=== PATIENT | female | born 1965 | race Native Hawaiian/Other Pacific Islander ===

== ENCOUNTER 2016-09-17 21:47 | Emergency (ER) | payer MEDICAID ==
[2016-09-17 21:52] VITALS: BMI 25.5
[2016-09-17 21:54] VITALS: RESP 16
[2016-09-17] MEDS ORDERED: Sodium Chloride 0.9% 1,000 ML IV STA (22:19)
--- NOTE | 2016-09-17 22:24 | ED PDOC ---
Arrival/HPI - General Chief Complaint: Flu-like Symptoms Time Seen by Provider: 09/17/16 22:00 Historian: Patient, Family - History of Present Illness Narrative History of Present Illness (Text): 09/17/16 22:21 51 y/o female, no significant pmh, nkda, pmd Loraine Reza, c/o feeling feeling hot and cold for the past 1 month along with occasional headache. Pt. has not been traveling outside of the [facility] for the past 3 months. Pt. stated she will be feeling hot and cold sensation, sometime difficulty sleeping and feeling sleepy during the day. Pt. stated that the energy level has not been the same, no throat pain, no abdominal or pelvic pain, no night sweat, no coughing or hemoptysis, no chest pain or shortness of breath, no neck stiffness, no rash, last period ending in the end of 07/2016. Past Medical History - Provider Review Nursing Documentation Reviewed: Yes - Tetanus Immunization Tetanus Immunization: Unknown - Cardiac Hx Cardiac Disorders: No - Pulmonary Hx Respiratory Disorders: No - Neurological Hx Neurological Disorder: No - HEENT Hx HEENT Disorder: No - Renal Hx Renal Disorder: No - Endocrine/Metabolic Hx Endocrine Disorders: No - Hematological/Oncological Hx Blood Disorders: No - Integumentary Hx Dermatological Disorder: No - Musculoskeletal/Rheumatological Hx Musculoskeletal Disorders: No - Gastrointestinal Hx Gastrointestinal Disorders: Yes Hx Gastritis: Yes - Genitourinary/Gynecological Hx Genitourinary Disorders: No - Psychiatric Hx Psychophysiologic Disorder: No Hx Substance Use: No - Surgical History Other/Comment: left breast lumpectomy - Anesthesia Hx Anesthesia Reactions: No Hx Malignant Hyperthermia: No - Suicidal Assessment Feels Threatened In Home Enviroment: No Family/Social History - Physician Review Nursing Documentation Reviewed: Yes Family/Social History: Unknown Family HX Smoking Status: Never Smoked Hx Alcohol Use: No Hx Substance Use: No Hx Substance Use Treatment: No Allergies/Home Meds Allergies/Adverse Reactions: Allergies No Known Allergies Allergy (Verified 01/02/15 18:30) Home Medications: Home Meds Medication Instructions Recorded Confirmed No Known Home Med 09/17/16 09/17/16 Review of Systems - Review of Systems Constitutional: Fatigue. absent: Fevers Eyes: absent: Vision Changes ENT: absent: Hearing Changes, Sore Throat, Rhinorrhea Respiratory: absent: SOB, Cough, Sputum Cardiovascular: absent: Chest Pain, Palpitations, Orthopnea, Syncope Gastrointestinal: absent: Abdominal Pain, Diarrhea, Nausea, Vomiting Musculoskeletal: absent: Arthralgias, Back Pain, Neck Pain, Joint Swelling, Myalgias Skin: absent: Rash, Pruritis, Skin Lesions, Laceration, Abscess, Ulcer, Cellulitis Neurological: absent: Headache, Dizziness, Focal Weakness, Gait Changes, Speech Changes, Facial Droop, Disequilibrium, Seizure Hemo/Lymphatic: absent: Adenopathy, Easy Bleeding, Easy Bruising Psychiatric: absent: Anxiety, Depression, Suicidal Ideation Physical Exam Vital Signs Reviewed: Yes Vital Signs Temp Pulse Resp BP Pulse Ox 09/18/16 00:13 97.6 F 73 16 105/65 98 09/17/16 21:52 97.5 F L 64 16 135/83 100 Temperature: Afebrile Blood Pressure: Normal Pulse: Regular Respiratory Rate: Normal Appearance: Positive for: Well-Appearing, Non-Toxic, Comfortable Pain Distress: Moderate Mental Status: Positive for: Alert and Oriented X 3 - Systems Exam Head: Present: Atraumatic, Normocephalic Pupils: Present: PERRL Extroacular Muscles: Present: EOMI Conjunctiva: Present: Normal Ears: Present: NORMAL TM, Normal Canal. No: Erythema Mouth: Present: Moist Mucous Membranes Pharnyx: No: ERYTHEMA, EXUDATE, TONSILS ENLARGED, Uvular Deviation, Muffled/ Hoarse Voice, Soft Palate/Uvular Edema Nose (External): Present: Atraumatic. No: Abrasion, Contusion Nose (Internal): Present: Normal Inspection, No Active Bleeding. No: Rhinorrhea , Septal Hematoma, Epistaxis Neck: Present: Normal Range of Motion, Trachea Midline. No: MIDLINE TENDERNESS , Paraspinal Tenderness, Lymphadenopathy Respiratory/Chest: Present: Clear to Auscultation, Good Air Exchange. No: Respiratory Distress, Accessory Muscle Use Cardiovascular: Present: Regular Rate and Rhythm, Normal S1, S2. No: Murmurs Abdomen: Present: Normal Bowel Sounds. No: Tenderness, Distention, Peritoneal Signs, Rebound, Guarding Back: Present: Normal Inspection Upper Extremity: Present: Normal Inspection. No: Cyanosis, Edema Lower Extremity: Present: Normal Inspection. No: Edema Neurological: Present: GCS=15, CN II-XII Intact, Speech Normal, Motor Func Grossly Intact, Gait Normal, Memory Normal Skin: Present: Warm, Dry, Normal Color. No: Rashes Lymphatic: No: Cervical Adenopathy Psychiatric: Present: Alert, Oriented x 3, Normal Insight, Normal Concentration Medical Decision Making ED Course and Treatment: 09/17/16 22:28 Post menopausal vs. Thyroid disorder vs. Brain mass vs. TB vs. Viral syndrome vs. UTI vs. Influenza -labs/thyroid/rapid flu/ua -IVF/toradol/reglan -CT head/chest x-ray -Observe and reassess 09/17/16 23:48 -CT Head show no acute findings -Chest x-ray show no active disease -UA show no UTI -Labs are non-significant except mildly elevated TSH 4.72 with normal T4, no emergent treatment indicated as the T4 is normal. I advised the patient to have outpatient repeat thyroid panel and thyroid sonogram with the pmd and endrocrinologist. 09/18/16 00:33 -I explained to the symptoms she experienced is likely menopausal symptoms which clinically match the history of present illness with the lab works. -I advised her to see the pmd for follow up. -Discharge home with education on take tylenol or motrin at home as needed, follow up with Dr. Loraine Reza for repeat thyroid panel and outpatient thyroid sonogram with possible heart surgeon and obgyn referral within 2 days, return to the ER for any new or worsening signs or symptoms. - Lab Interpretations Lab Results: 09/17/16 22:35 09/17/16 23:26 Lab Results 09/17/16 23:26: Sodium 138, Potassium 3.6, Chloride 105, Carbon Dioxide 26, Anion Gap 11, BUN 18, Creatinine 0.7, Est GFR ( Amer) > 60, Est GFR (Non- Af Amer) > 60, Random Glucose 113 H, Calcium 8.6, Total Bilirubin 0.4, AST 35, ALT 39, Alkaline Phosphatase 100, Total Protein 7.1, Albumin 3.9, Globulin 3.3, Albumin/Globulin Ratio 1.2 09/17/16 22:35: WBC 6.0 D, RBC 3.97, Hgb 13.3, Hct 37.9, MCV 95.5, MCH 33.5, MCHC 35.1, RDW 12.1, Plt Count 277, MPV 10.1, Gran % 48.0 L, Lymph % (Auto) 42.4 H, Boyd % (Auto) 7.4 H, Eos % (Auto) 1.7, Baso % (Auto) 0.5, Gran # 2.87, Lymph # 2.5, Boyd # 0.4, Eos # 0.1, Baso # 0.03, Free T4 0.79, TSH 3rd Generation 4.72 H, Urine Color Yellow, Urine Appearance Clear, Urine pH 6.0, Ur Specific [place] 1.020, Urine Protein Negative, Urine Glucose (UA) Negative, Urine Ketones Negative, Urine Blood Trace-lysed H, Urine Nitrate Negative, Urine Bilirubin Negative, Urine Urobilinogen 0.2, Ur Leukocyte Esterase Negative , Urine RBC 0 - 2, Urine WBC 1 - 3, Ur Epithelial Cells 1 - 3, Urine Bacteria Small, Influenza Typ A,B (EIA) Negative for flu a/b I have reviewed the lab results: Yes Interpretation: Abnormal lab values (mildly elevated TSH 4.72) - RAD Interpretation Radiology Orders: 09/17/16 22:19 HEAD W/O CONTRAST [CT] Stat CHEST PORTABLE [RAD] Stat CT Head: COMPARISON: No relevant prior studies available. FINDINGS: Brain: There is no evidence of intracranial hemorrhage. No evidence of acute territorial infarction. No significant white matter disease. No edema. Ventricles: Unremarkable. No ventriculomegaly. Bones/joints: Mild motion and beam hardening artifact near the skull base. No acute fracture. Soft tissues: Unremarkable. Sinuses: Unremarkable as visualized. No acute sinusitis. Mastoid air cells: Unremarkable as visualized. No mastoid effusion. IMPRESSION: 1. No evidence for acute intracranial abnormality or displaced calvarial fracture. 2. Additional incidental and/or chronic findings as described. 3. Artifact slightly limits evaluation. Thank you for allowing us to participate in the care of your patient. Dictated and Authenticated by: Kuldeep Trejo MD 09/17/2016 11:19 PM Eastern Time ([place] & [place]) Chest x-ray: Crusher Setter: Radiologist - Medication Orders Current Medication Orders: Discontinued Medications Sodium Chloride (Sodium Chloride 0.9%) 1,000 mls @ 999 mls/hr IV .Q1H1M STA Stop: 09/17/16 23:19 Last Admin: 09/17/16 22:49 Dose: 999 MLS/HR eMAR Start Stop Document 09/17/16 22:49 [email or web address] (Rec: 09/17/16 22:49 [id number]) Intravenous Solution Start Date 09/17/16 Start Time 22:49 End Date 09/17/16 Ketorolac Tromethamine (Toradol) 30 mg IVP STAT STA Stop: 09/17/16 22:20 Last Admin: 09/17/16 22:50 Dose: Not Given Non-Admin Reason: Patient Refused IVP Administration Document 09/17/16 22:50 [email or web address] (Rec: 09/17/16 22:[id number]- [id number]) Charges for Administration # of IVP Administrations 1 Metoclopramide HCl (Reglan) 10 mg IVP STAT STA Stop: 09/17/16 22:22 Last Admin: 09/17/16 22:50 Dose: Not Given Non-Admin Reason: Patient Refused IVP Administration Document 09/17/16 22:50 [email or web address] (Rec: 09/17/16 22:[id number]- [id number]) Charges for Administration # of IVP Administrations 1 - PA / ONCOLOGY PHYSICIAN ASSISTANT / Resident Statement MD/DO has reviewed & agrees with the documentation as recorded. Disposition/Present on Arrival - Present on Arrival Any Indicators Present on Arrival: No History of DVT/PE: No History of Uncontrolled Diabetes: No Urinary Catheter: No History of Decub. Ulcer: No History Surgical Site Infection Following: None - Disposition Have Diagnosis and Disposition been Completed?: Yes Diagnosis: Menopausal symptoms, Abnormal thyroid stimulating hormone (TSH) level Disposition: HOME/ ROUTINE Disposition Time: 23:49 Patient Plan: Discharge Condition: GOOD Additional Instructions: Discharge home with education on take tylenol or motrin at home as needed, follow up with Dr. Loraine Reza for repeat thyroid panel and outpatient thyroid sonogram with possible heart surgeon and obgyn referral within 2 days, return to the ER for any new or worsening signs or symptoms. Referrals: Loraine Reza MD [Primary Care Provider] - Follow up with primary Jorge Brand MD [Staff Provider] - Follow up with primary Forms: WORK NOTE
[2016-09-17 23:07] LABS: ADD MANUAL DIFF? NO
[2016-09-17 23:15] LABS: BASO # 0.03 K/mm3 (0.0-2.0); BASO % 0.5 % (0.0-3.0); EOS # 0.1 (0.0-0.7); EOS % 1.7 % (1.5-5.0); GRAN # 2.87 (1.4-6.5); HEMATOCRIT 37.9 % (36.0-48.0); LYMPH # 2.5 (1.2-3.4); LYMPH % 42.4 % (22.0-35.0); MEAN CELL VOLUME 95.5 fL (80.0-105.0); MEAN CORPUSCULAR HEMOGLOBIN 33.5 pg (25.0-35.0); MEAN CORPUSCULAR HGB CONC 35.1 g/dl (31.0-37.0); MEAN PLATELET VOLUME 10.1 fl (7.0-11.0); MONO # 0.4 (0.1-0.6); MONO % 7.4 % (1.0-6.0); PLATELET COUNT 277 10^3/uL (120.0-450.0); RED CELL DISTRIBUTION WIDTH 12.1 % (11.5-14.5); URINE BILIRUBIN NEGATIVE (NEGATIVE); URINE BLOOD TRACE-LYSED (NEGATIVE); URINE GLUCOSE (UA) NEGATIVE (NEGATIVE); URINE KETONE NEGATIVE (NEGATIVE); URINE LEUKOCYTE ESTERASE NEGATIVE Leu/uL (NEGATIVE); URINE PROTEIN NEGATIVE mg/dL (<30 mg/dL); URINE UROBILINOGEN 0.2 E.U./dL (<1 E.U./dL)
[2016-09-17 23:17] LABS: URINE APPEARANCE CLEAR (CLEAR); URINE COLOR YELLOW (YELLOW)
--- NOTE | 2016-09-17 23:20 | CT ---
EXAM: CT Head Without Intravenous Contrast. CLINICAL HISTORY: 51 years old, female; Pain; Headache; Migraine; Patient HX: Headache x 1 month TECHNIQUE: Axial computed tomography images of the head/brain without intravenous contrast. This CT exam was performed using one or more of the following dose reduction techniques: automated exposure control, adjustment of the mA and/or kV according to patient size, and/or use of iterative reconstruction technique. COMPARISON: No relevant prior studies available. FINDINGS: Brain: There is no evidence of intracranial hemorrhage. No evidence of acute territorial infarction. No significant white matter disease. No edema. Ventricles: Unremarkable. No ventriculomegaly. Bones/joints: Mild motion and beam hardening artifact near the skull base. No acute fracture. Soft tissues: Unremarkable. Sinuses: Unremarkable as visualized. No acute sinusitis. Mastoid air cells: Unremarkable as visualized. No mastoid effusion. IMPRESSION: 1. No evidence for acute intracranial abnormality or displaced calvarial fracture. 2. Additional incidental and/or chronic findings as described. 3. Artifact slightly limits evaluation.
[2016-09-17 23:31] LABS: URINE BACTERIA SMALL (NEG); URINE RBC 0 - 2 /hpf (0-2)
[2016-09-17 23:44] LABS: FREE T4 0.79 ng/dL (0.78-2.19)
[2016-09-17 23:45] LABS: ALB/GLOB RATIO 1.2 (1.1-1.8); ALKALINE PHOSPHATASE 100 U/L (38-133); ALT/SGPT 39 U/L (7-56); AST/SGOT 35 U/L (15-39); BILIRUBIN,TOTAL 0.4 mg/dL (0.2-1.3); BLOOD UREA NITROGEN 18 mg/dL (7-21); CALCIUM 8.6 mg/dL (8.4-10.5); CARBON DIOXIDE 26 mmol/L (21-33); CHLORIDE 105 mmol/L (98-107); GFR AFRICAN-AMERICAN > 60; GLUCOSE,RANDOM 113 mg/dL (70-110); POTASSIUM 3.6 mmol/L (3.6-5.0); SODIUM 138 mmol/L (132-148); TOTAL PROTEIN 7.1 g/dL (5.8-8.3)
[2016-09-17 23:58] LABS: THYROID STIMULATING HORMONE 4.72 mIU/mL (0.46-4.68)
[2016-09-18 00:13] VITALS: BP 105/65; PULSE 73; TEMP 97.6; O2SAT 98
--- NOTE | 2016-09-18 08:36 | RAD ---
HISTORY: medical clearance COMPARISON: None available. TECHNIQUE: Chest, one view. FINDINGS: Examination limited by habitus. LUNGS: No focal consolidation. Please note that chest x-ray has limited sensitivity for the detection of pulmonary masses. PLEURA: No significant pleural effusion identified. No definite pneumothorax . CARDIOVASCULAR: The cardiomediastinal silhouette appears within normal limits of size. OSSEOUS STRUCTURES: No acute osseous abnormality identified. VISUALIZED UPPER ABDOMEN: Unremarkable. OTHER FINDINGS: None. IMPRESSION: No focal consolidation, significant pleural effusion, or definite pneumothorax identified.
== END 2016-09-18 00:51 | disposition home or self-care (01) ==
LOC: ED 21:47
DX: N95.1 Menopausal and female climacteric states (principal); R79.89 Other specified abnormal findings of blood chemistry
CPT/HCPCS: 70450; 71010; 80053; 81001; 84439; 84443; 85025; 87804; 99284; J7040

== ENCOUNTER 2017-02-09 16:02 | Emergency (ER) | payer MEDICAID ==
[2017-02-09 16:02] VITALS: BMI 25.5
[2017-02-09 16:06] VITALS: RESP 16; O2SAT 98
[2017-02-09 16:47] VITALS: BP 98/65; PULSE 70; TEMP 97.9
--- NOTE | 2017-02-09 16:59 | ED PDOC ---
Arrival/HPI - General Chief Complaint: ENT Problem Time Seen by Provider: 02/09/17 16:34 Historian: Patient, Field Cane Scale Clerk (Son) - History of Present Illness Narrative History of Present Illness (Text): 02/09/17 16:45 A 51 year old female whose past medical history includes thyroid nodules, was brought in by her son who translated with a complaint of left sided neck pain. The osn states that the patient believed that the pain is associated with the thyroid nodules. She is scheduled with an behavioral therapist next week for evaluation. specifically when asked where the pain is, she points to lateral neck. The patient denies headache, fevers, chills, nausea, vomiting, diarrhea, aphasia, cough, chest pain, abdominal pain, or any other complaint. no sob, dysphagia. 02/10/17 22:30 02/10/17 22:30 Time/Duration: Other (Today) Symptom Onset: Sudden Symptom Course: Unchanged Activities at Onset: Rest, Light Context: Home Past Medical History - Provider Review Nursing Documentation Reviewed: Yes - Tetanus Immunization Tetanus Immunization: Unknown - Cardiac Hx Cardiac Disorders: No - Pulmonary Hx Respiratory Disorders: No - Neurological Hx Neurological Disorder: No - HEENT Hx HEENT Disorder: No - Renal Hx Renal Disorder: Yes Hx Kidney Stones: Yes - Endocrine/Metabolic Hx Endocrine Disorders: No - Hematological/Oncological Hx Blood Disorders: No - Integumentary Hx Dermatological Disorder: No - Musculoskeletal/Rheumatological Hx Musculoskeletal Disorders: No - Gastrointestinal Hx Gastrointestinal Disorders: Yes Hx Gastritis: Yes - Genitourinary/Gynecological Hx Genitourinary Disorders: No Other/Comment: uterine fibroids - Psychiatric Hx Psychophysiologic Disorder: No Hx Substance Use: No - Surgical History Other/Comment: left breast lumpectomy - Anesthesia Hx Anesthesia Reactions: No Hx Malignant Hyperthermia: No - Suicidal Assessment Feels Threatened In Home Enviroment: No Family/Social History - Physician Review Nursing Documentation Reviewed: Yes Family/Social History: No Known Family HX Smoking Status: Never Smoked Hx Alcohol Use: No Hx Substance Use: No Hx Substance Use Treatment: No Allergies/Home Meds Allergies/Adverse Reactions: Allergies No Known Allergies Allergy (Verified 01/02/15 18:30) Home Medications: Home Meds Medication Instructions Recorded Confirmed No Known Home Med 09/17/16 02/09/17 Review of Systems - Physician Review All systems were reviewed & negative as marked: Yes - Review of Systems Constitutional: absent: Fevers, Night Sweats ENT: Other (Left sided neck pain) Respiratory: absent: SOB, Cough Cardiovascular: absent: Chest Pain, Syncope Gastrointestinal: absent: Diarrhea, Nausea, Vomiting Neurological: absent: Headache, Dizziness Physical Exam Vital Signs Reviewed: Yes Vital Signs Temp Pulse Resp BP Pulse Ox 02/09/17 16:21 97.9 F 70 16 98/65 L 98 Temperature: Afebrile Blood Pressure: Hypertensive Pulse: Regular Respiratory Rate: Normal Appearance: Positive for: Well-Appearing, Non-Toxic, Comfortable Pain Distress: None Mental Status: Positive for: Alert and Oriented X 3 - Systems Exam Head: Present: Atraumatic, Normocephalic Pupils: Present: PERRL Extroacular Muscles: Present: EOMI Conjunctiva: Present: Normal Mouth: Present: Moist Mucous Membranes Neck: Present: Normal Range of Motion Respiratory/Chest: Present: Clear to Auscultation, Good Air Exchange. No: Respiratory Distress, Accessory Muscle Use Cardiovascular: Present: Regular Rate and Rhythm, Normal S1, S2. No: Murmurs Abdomen: Present: Normal Bowel Sounds. No: Tenderness, Distention, Peritoneal Signs Back: Present: Normal Inspection Upper Extremity: Present: Normal Inspection. No: Cyanosis, Edema Lower Extremity: Present: Normal Inspection. No: Edema Neurological: Present: GCS=15, CN II-XII Intact, Speech Normal, Other (Speaking full sentences) Skin: Present: Warm, Dry, Normal Color. No: Rashes Psychiatric: Present: Alert, Oriented x 3, Normal Insight, Normal Concentration Medical Decision Making ED Course and Treatment: 02/09/17 16:51 Impression: A 51 year old female with left sided neck pain. pt attributes pain to thyroid nodules diagnosed via us 2 weeks ago. (pt with us images on phone) Differential Diagnosis included but are not limited to: Plan: -- Reassess and disposition Progress Notes: 02/09/17 18:23 pt speaking full sentences. not tachcardic, bradycardic, no clinical concern for myedema vs thyroid storm speaking full sentences, no dysphagia. no palpable goiter or nodule. pt advises she will need continued outpt managment. 02/10/17 14:57 - Scribe Statement The provider has reviewed the documentation as recorded by the Scribe Misa Viramontes Provider Scribe Attestation: All medical record entries made by the Scribe were at my direction and personally dictated by me. I have reviewed the chart and agree that the record accurately reflects my personal performance of the history, physical exam, medical decision making, and the department course for this patient. I have also personally directed, reviewed, and agree with the discharge instructions and disposition. Disposition/Present on Arrival - Present on Arrival Any Indicators Present on Arrival: No History of DVT/PE: No History of Uncontrolled Diabetes: No Urinary Catheter: No History of Decub. Ulcer: No History Surgical Site Infection Following: None - Disposition Have Diagnosis and Disposition been Completed?: Yes Diagnosis: Thyroid nodule Disposition: HOME/ ROUTINE Disposition Time: 04:00 Condition: STABLE Discharge Instructions (ExitCare): Thyroid Goiter (ED) Additional Instructions: please follow up with your sepcialist return to er with worsening symptoms or concerns. Referrals: Celia Neri [Outside] - Follow up with primary Loraine Reza MD [Primary Care Provider] - Follow up with primary Forms: Celia Mejia ([place])
== END 2017-02-09 17:05 | disposition home or self-care (01) ==
LOC: ED 16:02
DX: E04.1 Nontoxic single thyroid nodule (principal)